=== PATIENT | female | born 1990 | race American Indian/Alaskan Native ===

== ENCOUNTER 2020-10-23 18:54 | Emergency (ER) | payer MEDICAID ==
--- NOTE | 2020-10-23 20:27 | Emergency Department Report ---
ED General Adult HPI - General Chief complaint: Medical Clearance Stated complaint: REFERED BY NURSE Source: patient Mode of arrival: Ambulatory Limitations: No Limitations - History of Present Illness Initial comments: Patient is a 30-year-old -[place] female with a history of chronic epileptic seizures and who usually takes Keppra 1500 mg twice a day presents to the ED requesting for refill of her Keppra medications after she ran out of the medications 24 hours ago. Patient states that the last time she had a seizure was about a month ago. Patient states that she contacted her primary care physician who advised her to come to the ED for refill of her medications. Patient denies headache, dizziness, syncope, seizures, fever, chills, nausea and vomiting, abdominal pain, diarrhea, cough, change in vision, palpitations or upper and lower extremity numbness and tingling sensations. MD Complaint: Medication refill; history of chronic epileptic seizures -: Sudden, hour(s) (24) Radiation: non-radiation Severity scale (0 -10): 0 Improves with: none Worsens with: none Associated Symptoms: denies other symptoms. denies: confusion, cough, diaphoresis, fever/chills, headaches, loss of appetite, malaise, nausea/vomiting, shortness of breath, syncope, weakness Treatments Prior to Arrival: none - Related Data Previous Rx's Medication Instructions Recorded Last Taken Type levETIRAcetam [Keppra TAB] 1,500 mg PO BID #120 tablet 10/23/20 Unknown Rx Allergies Allergy/AdvReac Type Severity Reaction Status Date / Time phenytoin [From Dilantin] Allergy Unknown Verified 10/23/20 19:27 ED Review of Systems ROS: Stated complaint: REFERED BY NURSE Other details as noted in HPI Constitutional: other (Medication refill). denies: chills, fever Eyes: denies: eye pain, eye discharge, vision change ENT: denies: ear pain, throat pain Respiratory: denies: cough, shortness of breath, wheezing Cardiovascular: denies: chest pain, palpitations Endocrine: no symptoms reported Gastrointestinal: denies: abdominal pain, nausea, diarrhea Genitourinary: denies: urgency, dysuria, discharge Musculoskeletal: denies: back pain, joint swelling, arthralgia Skin: denies: rash, lesions Neurological: denies: headache, weakness, paresthesias Psychiatric: denies: anxiety, depression Hematological/Lymphatic: denies: easy bleeding, easy bruising ED Past Medical Hx - Past Medical History Previous Medical History?: Yes Hx Seizures: Yes - Surgical History Past Surgical History?: No - Medications Home Medications: Home Medications Medication Instructions Recorded Confirmed Last Taken Type levETIRAcetam [Keppra TAB] 1,500 mg PO BID #120 tablet 10/23/20 Unknown Rx ED Physical Exam - General Limitations: No Limitations General appearance: alert, in no apparent distress - Head Head exam: Present: atraumatic, normocephalic, normal inspection - Eye Eye exam: Present: normal appearance, PERRL, EOMI Pupils: Present: normal accommodation - ENT ENT exam: Present: normal exam, normal orophraynx, mucous membranes moist, TM's normal bilaterally, normal external ear exam - Neck Neck exam: Present: normal inspection, full ROM - Respiratory Respiratory exam: Present: normal lung sounds bilaterally. Absent: respiratory distress, wheezes, rales, rhonchi, chest wall tenderness, accessory muscle use, decreased breath sounds, prolonged expiratory - Cardiovascular Cardiovascular Exam: Present: regular rate, normal rhythm, normal heart sounds. Absent: systolic murmur, diastolic murmur, rubs, gallop - GI/Abdominal GI/Abdominal exam: Present: soft, normal bowel sounds. Absent: tenderness, guarding, rebound, hyperactive bowel sounds - Extremities Exam Extremities exam: Present: normal inspection, full ROM, normal capillary refill. Absent: tenderness, pedal edema, joint swelling, calf tenderness - Back Exam Back exam: Present: normal inspection, full ROM. Absent: tenderness, CVA tenderness (R), CVA tenderness (L), muscle spasm, paraspinal tenderness, vertebral tenderness - Neurological Exam Neurological exam: Present: alert, oriented X3, CN II-XII intact, normal gait, reflexes normal - Psychiatric Psychiatric exam: Present: normal affect, normal mood - Skin Skin exam: Present: warm, dry, intact, normal color. Absent: rash ED Course Vital Signs 10/23/20 19:25 Temperature 98.3 F Pulse Rate 75 Respiratory 18 Rate Blood Pressure 142/85 O2 Sat by Pulse 100 Oximetry ED Medical Decision Making - Medical Decision Making This is a 30-year-old -[place] female with a history of chronic epileptic seizures and who usually takes Keppra 1500 mg twice a day presents to the ED requesting for refill of her Keppra medications after she ran out of the medications 24 hours ago. Patient states that the last time she had a seizure was about a month ago. Patient states that she contacted her primary care physician who advised her to come to the ED for refill of her medications. In the ED, patient is alert and oriented x3 and is not in distress. Patient is hemodynamically stable. Patient has not had a seizure for over 1 month but ran out of the medications 24 hours ago. Patient medications were refilled for 1 month and was advised to follow-up with her primary care physician for further evaluation and more medication refills. Patient was otherwise advised to return to the ED immediately if symptoms get worse. - Differential Diagnosis Chronic seizures; medication refill Critical care attestation.: If time is entered above; I have spent that time in minutes in the direct care of this critically ill patient, excluding procedure time. ED Disposition Clinical Impression: Seizure disorder Disposition: DC-01 TO HOME OR SELFCARE Is pt being admited?: No Does the pt Need Aspirin: No Condition: Stable Instructions: Epilepsy, [id number] Additional Instructions: Take medications with food, drink plenty of fluids and follow-up with your primary care physician in 5 to 7 days for reevaluation. Return to the ED immediately if symptoms get worse Prescriptions: levETIRAcetam [Keppra TAB] 1,500 mg PO BID #120 tablet Referrals: [facility] [Provider Group] - 3-5 Days Time of Disposition: 20:27 Print Language: LEB[place]
[2020-10-24 05:35] VITALS: BP 116/80
== END 2020-10-23 20:40 | disposition home or self-care (01) ==
LOC: ED 18:54
DX: G40.909 Epilepsy, unspecified, not intractable, without status epilepticus (principal); Z88.8 Allergy status to other drugs, medicaments and biological substances; Z79.899 Other long term (current) drug therapy
CPT/HCPCS: 99282